=== PATIENT | female | born 1950 | race Caucasian/White ===

== ENCOUNTER 2017-08-07 17:27 | Inpatient (IN) | payer OTHER ==
[~2017-08-07] VITALS: Ht 170.2 cm; Wt 99.8 kg
--- NOTE | ~2017-08-07 | EKG ---
[place] [address] 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1950 Requested By: Caren Walter Order Number: [id number] MD: Tin Marrero Measurements Intervals [place] Rate: 82 P: 20 CA: 143 QRS: -24 QRSD: 101 T: 188 QT: 388 QTc: 453 Interpretive Statements Sinus rhythm Borderline left axis deviation Abnormal R-wave progression, late transition Borderline repolarization abnormality No previous ECG available for comparison Electronically Signed On 08-08-2017 14:37:19 SKIN LAP BONDER by Tin Marrero [email or web address] <ELECTRONICALLY SIGNED> By: Tin Marrero MD, [facility] 08/08/17 1437 D: [id number] Tin Marrero MD, FACC /EPI
[2017-08-07 17:28] VITALS: BP 122/51
[2017-08-07 17:48] LABS: ABSOLUTE NEUTROPHILS 11.9 thou/uL (1.4-8.2); BASOPHILS 0.7 % (0.0-2.0); EOSINOPHILS 0.3 % (0.0-3.0); HEMOGLOBIN 13.8 gm/dL (12.0-15.0); LYMPHOCYTES 8.9 % (24.0-44.0); MCHC 33.5 g/dL (28.0-37.0); MCV 98.5 fL (80.0-100.0); MONOCYTES 10.6 % (1.0-8.0); PLATELET COUNT 265 thou/uL (150-400); POLYS 79.5 % (36.0-66.0); RBC 4.17 mil/uL (4.20-5.00); RDW 15.6 % (10.5-14.5)
[2017-08-07] MEDS ORDERED: COLACE100 MG PO (17:51)
[2017-08-07] MEDS ORDERED: VITAMIN D2000 UNIT PO (17:51)
[2017-08-07] MEDS ORDERED: KEFLEX500 M1 PO (17:51)
[2017-08-07] MEDS ORDERED: ASA5UEC PO (17:52)
[2017-08-07] MEDS ORDERED: DEPAKOTE ER500 MG PO (17:52)
[2017-08-07] MEDS ORDERED: OMEPRAZOLE40 MG PO (17:52)
[2017-08-07] MEDS ORDERED: ACTONEL 35 MG35 M1 PO (17:53)
[2017-08-07] MEDS ORDERED: RISPERDAL 1 MG T1 MG PO (17:53)
[2017-08-07] MEDS ORDERED: ZANTAC 150MG T150 MG PO (17:53)
[2017-08-07] MEDS ORDERED: TESSALON PERLE100 MG PO (17:53)
[2017-08-07] MEDS ORDERED: LASIX 20 MG TAB20 MG PO (17:53)
[2017-08-07] MEDS ORDERED: KLOR-CON 1010 MEQ PO (17:54)
[2017-08-07] MEDS ORDERED: OXYCONTIN10 M1 PO (17:54)
[2017-08-07] MEDS ORDERED: NEURONTIN 300300 M1 PO (17:54)
[2017-08-07] MEDS ORDERED: ONDANSETRON HCL4 M2 PO (17:55)
[2017-08-07] MEDS ORDERED: CLONAZEPAM 0.50.5 M1 PO (17:55)
[2017-08-07] MEDS ORDERED: TRIAMCINOLONE A80 G2 TOP (17:55)
[2017-08-07 18:02] LABS: CALCIUM 8.7 mg/dL (8.5-10.1)
[2017-08-07 18:29] VITALS: BP 122/51
[2017-08-07 18:52] VITALS: BP 118/68
[2017-08-07 19:42] VITALS: BP 110/41
[2017-08-08 00:10] VITALS: BP 138/52
[2017-08-08] MEDS ORDERED: OXYCODONE HCL10 MG PO (00:45)
[2017-08-08 04:14] VITALS: BP 122/54
[2017-08-08 04:42] LABS: ABSOLUTE NEUTROPHILS 7.8 thou/uL (1.4-8.2); BASOPHILS 0.4 % (0.0-2.0); EOSINOPHILS 0.5 % (0.0-3.0); HEMATOCRIT 32.6 % (37.0-47.0); LYMPHOCYTES 24.6 % (24.0-44.0); MCH 33.2 pg (26.0-34.0); MCHC 33.7 g/dL (28.0-37.0); MCV 98.5 fL (80.0-100.0); MONOCYTES 11.4 % (1.0-8.0); POLYS 63.1 % (36.0-66.0); RBC 3.31 mil/uL (4.20-5.00); RDW 15.1 % (10.5-14.5); WBC 12.3 thou/uL (4.0-11.0)
[2017-08-08 04:46] LABS: PLATELET COUNT 163 thou/uL (150-400)
[2017-08-08 04:49] LABS: CREATININE 0.8 mg/dL (0.6-1.0)
[2017-08-08 04:58] LABS: POTASSIUM 2.7 mmol/L (3.5-5.1)
[2017-08-08 07:05] VITALS: BP 124/47
[2017-08-08 15:46] VITALS: BP 108/39
[2017-08-08 19:39] VITALS: BP 124/59
[2017-08-09 03:57] LABS: ABSOLUTE NEUTROPHILS 4.7 thou/uL (1.4-8.2); BASOPHILS 0.5 % (0.0-2.0); EOSINOPHILS 2.5 % (0.0-3.0); HEMATOCRIT 33.3 % (37.0-47.0); HEMOGLOBIN 11.2 gm/dL (12.0-15.0); LYMPHOCYTES 37.1 % (24.0-44.0); MCH 33.4 pg (26.0-34.0); MCHC 33.7 g/dL (28.0-37.0); MCV 99.2 fL (80.0-100.0); MONOCYTES 11.3 % (1.0-8.0); PLATELET COUNT 172 thou/uL (150-400); POLYS 48.6 % (36.0-66.0); RBC 3.36 mil/uL (4.20-5.00); RDW 15.5 % (10.5-14.5); WBC 9.6 thou/uL (4.0-11.0)
[2017-08-09 04:06] LABS: CALCIUM 8.3 mg/dL (8.5-10.1); CREATININE 0.9 mg/dL (0.6-1.0)
[2017-08-09 04:12] LABS: POTASSIUM 2.9 mmol/L (3.5-5.1)
[2017-08-09 04:34] VITALS: BP 100/45
[2017-08-09 08:11] VITALS: BP 111/52
[2017-08-09 11:30] LABS: MAGNESIUM 2.3 mg/dL (1.8-2.4); POTASSIUM 3.7 mmol/L (3.5-5.1)
[2017-08-09 16:20] VITALS: BP 96/45
[2017-08-09 20:00] VITALS: BP 96/44
[2017-08-09 23:40] VITALS: BP 113/35
[2017-08-10 04:15] VITALS: BP 109/44
[2017-08-10 06:31] LABS: ABSOLUTE NEUTROPHILS 3.6 thou/uL (1.4-8.2); BASOPHILS 0.5 % (0.0-2.0); EOSINOPHILS 3.8 % (0.0-3.0); HEMATOCRIT 33.5 % (37.0-47.0); HEMOGLOBIN 11.3 gm/dL (12.0-15.0); LYMPHOCYTES 37.4 % (24.0-44.0); MCH 33.5 pg (26.0-34.0); MCHC 33.7 g/dL (28.0-37.0); MCV 99.3 fL (80.0-100.0); PLATELET COUNT 197 thou/uL (150-400); POLYS 46.3 % (36.0-66.0); RBC 3.38 mil/uL (4.20-5.00); RDW 15.7 % (10.5-14.5); WBC 7.9 thou/uL (4.0-11.0)
[2017-08-10 07:57] VITALS: BP 101/42
[2017-08-10] MEDS ORDERED: ADULT LOW DOSE81 MG PO (09:05)
[2017-08-10] MEDS ORDERED: KEFLEX500 M1 PO (09:05)
== END 2017-08-10 13:11 | DRG 871 ==
LOC: ER 17:27 → 4E 18:14 → EROBS 18:14 → 4E 18:53
PROVIDERS: Emergency Medicine; Family Medicine
DX: A41.9 Sepsis, unspecified organism (principal); J18.9 Pneumonia, unspecified organism; G93.40 Encephalopathy, unspecified; L03.90 Cellulitis, unspecified; E87.6 Hypokalemia; D72.829 Elevated white blood cell count, unspecified; E83.42 Hypomagnesemia; Z96.643 Presence of artificial hip joint, bilateral; R12 Heartburn; F39 Unspecified mood [affective] disorder; Z88.8 Allergy status to other drugs, medicaments and biological substances; Z79.82 Long term (current) use of aspirin; Z90.710 Acquired absence of both cervix and uterus
CPT/HCPCS: 10183

== ENCOUNTER 2017-12-14 18:46 | Emergency (ER) | payer OTHER ==
[~2017-12-14] VITALS: Ht 172.7 cm; Wt 112.0 kg
--- NOTE | ~2017-12-14 | EKG ---
[place] [address] 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 : 1950 Requested By: Caren Walter Order Number: [id number] MD: Tin Marrero Measurements Intervals [place] Rate: 73 P: 43 ME: 144 QRS: 0 QRSD: 115 T: 26 QT: 409 QTc: 451 Interpretive Statements Sinus rhythm Atrial premature complex Nonspecific T abnormalities, anterior leads Compared to ECG 08/07/2017 17:56:05 Atrial premature complex(es) now present Electronically Signed On 12-15-2017 7:40:59 CDT by Tin Marrero [email or web address] <ELECTRONICALLY SIGNED> By: Tin Marrero MD, [facility] 12/15/17 0740 03 03 Tin Marrero MD, [facility] /EPI
[~2017-12-14 18:46] MED LIST: ACTONEL 35 MG35 M1 PO; ADULT LOW DOSE81 MG PO; ASA5UEC PO; CLONAZEPAM 0.50.5 M1 PO; COLACE100 MG PO; DEPAKOTE ER500 MG PO; KEFLEX500 M1 PO; KLOR-CON 1010 MEQ PO; LASIX 20 MG TAB20 MG PO; NEURONTIN 300300 M1 PO; OMEPRAZOLE40 MG PO; ONDANSETRON HCL4 M2 PO; OXYCODONE HCL10 MG PO; OXYCONTIN10 M1 PO; RISPERDAL 1 MG T1 MG PO; TESSALON PERLE100 MG PO; TRIAMCINOLONE A80 G2 TOP; VITAMIN D2000 UNIT PO; ZANTAC 150MG T150 MG PO
[2017-12-14 20:00] LABS: ABSOLUTE NEUTROPHILS 3.1 thou/uL (1.4-8.2); BASOPHILS 0.8 % (0.0-2.0); EOSINOPHILS 2.9 % (0.0-3.0); HEMATOCRIT 33.8 % (37.0-47.0); HEMOGLOBIN 11.3 gm/dL (12.0-15.0); LYMPHOCYTES 35.7 % (24.0-44.0); MCHC 33.5 g/dL (28.0-37.0); MCV 95.4 fL (80.0-100.0); MONOCYTES 11.9 % (1.0-8.0); PLATELET COUNT 221 thou/uL (150-400); POLYS 48.7 % (36.0-66.0); RBC 3.54 mil/uL (4.20-5.00); RDW 14.4 % (10.5-14.5); WBC 6.4 thou/uL (4.0-11.0)
[2017-12-14 20:12] LABS: ANION GAP 4 mmol/L (7-16); BUN 25 mg/dL (7-18); CALCIUM 9.2 mg/dL (8.5-10.1); CHLORIDE 105 mmol/L (98-107); CO2 33 mmol/L (21-32); CREATININE 1.4 mg/dL (0.6-1.0); GLUCOSE 119 mg/dL (74-106); POTASSIUM 3.6 mmol/L (3.5-5.1); SODIUM 142 mmol/L (136-145)
[2017-12-14 20:21] LABS: TROPONIN-I < 0.04 ng/mL (<0.06)
== END 2017-12-14 23:50 ==
LOC: ER 18:46
PROVIDERS: Emergency Medicine
DX: R60.0 Localized edema (principal); E66.9 Obesity, unspecified; Z96.643 Presence of artificial hip joint, bilateral; Z88.1 Allergy status to other antibiotic agents; Z88.8 Allergy status to other drugs, medicaments and biological substances; Z68.37 Body mass index [BMI] 37.0-37.9, adult

== ENCOUNTER 2017-12-21 19:52 | Inpatient (IN) | payer OTHER ==
[~2017-12-21] VITALS: Ht 170.2 cm; Wt 106.1 kg
--- NOTE | ~2017-12-21 | 2DMMODE ---
[facility] [address] [place] [address] 2 D/M-MODE ECHOCARDIOGRAM Name: SHANON BRADSHAW Room #: 170-10 ADM IN M.R.#: [id number] Admission: 12/21/17 Attend Phys: Karen Edmondson Discharge: Date of : 46 Date of Service: 12/22/17 1227 Report #: [id number] THIS REPORT FOR: //name// APPROVED REPORT Study performed: 12/22/2017 09:50:05 EXAM: Comprehensive 2D, Doppler, and color-flow Echocardiogram Patient Location: ER Room #: 10 Status: routine BSA: 2.19 HR: 67 bpm BP: 121/49 mmHg Other Information Study Quality: Fair Indications Dyspnea Edema 2D Dimensions RVDd: 32.19 mm LVEF(%): 56.44 (>50%) IVSd: 10.21 (7-11mm) LVOT Diam: 21.75 (18-24mm) LVDd: 59.34 mm PWd: 9.57 (7-11mm) Ascending Ao: 31.25 (22-36mm) LVDs: 41.51 (25-40mm) Aortic Root: 31.72 mm IVC: 23.00 mm Gabriel's LVEF: 56.44 % Volumes Left Atrial Volume (Systole) Single Plane 4CH: 59.31 mL Single Plane 2CH: 45.57 mL LA ESV Index: 26.00 mL/m2 Aortic Valve AoV Peak Vikash.: 1.90 m/s AO Peak Gr.: 14.42 mmHg LVOT Max P.81 mmHg LVOT Max V: 1.10 m/s JENNIFER Vmax: 2.14 cm2 AI Vmax: 3.92 m/s AI [place]: 2.20 m/s2 AI PHT: 517.51 ms [facility] [place] [address] 2 D/M-MODE ECHOCARDIOGRAM Name: SHANON BRADSHAW Room #: 170[facility] ADM IN M.R.#: [id number] Admission: 12/21/17 Attend Phys: Karen Edmondson Discharge: Date of : 46 Date of Service: 12/22/17 1227 Report #: [id number] Mitral Valve E/A Ratio: 1.1 MV Decel. Time: 175.48 ms MV E Max Vikash.: 1.08 m/s MV A Vikash.: 0.95 m/s MV PHT: 50.89 ms IVRT: 101.50 ms Pulmonary Valve PV Peak Vikash.: 0.93 m/s PV Peak Gr.: 3.50 mmHg Pulmonary Vein P Vein S: 0.43 m/s P Vein A: 0.25 m/s P Vein D: 0.23 m/s P Vein A Dur.: 92.3 msec P Vein S/D Ratio: 1.87 Tricuspid Valve TR Peak Vikash.: 2.74 m/s TR Peak Gr.: 29.93 mmHg PA Pressure: 40.00 mmHg Left Ventricle Left ventricle is at the upper limits of normal. Regional wall motion is not well visualized but grossly normal. There is normal left ventricular wall thickness. The left ventricular systolic function is normal. The left ventricular ejection fraction is within the normal range. LVEF is 55-60%. The left ventricular diastolic function is normal. Right Ventricle The right ventricle is normal size. The right ventricular systolic function is normal. Atria The left atrium size is normal. The right atrium size is normal. Aortic Valve Aortic valve is calcified. Mild aortic regurgitation. There is no aortic valvular stenosis. Mitral Valve Mild mitral annular calcification Mild mitral regurgitation. No evidence of mitral valve stenosis. Tricuspid Valve [facility] [address] [place] [address] 2 D/M-MODE ECHOCARDIOGRAM Name: SHANON BRADSHAW Room #: 170-10 [facility] IN .R.#: [id number] Admission: 12/21/17 Attend Phys: Karen Edmondson Discharge: Date of : 46 Date of Service: 12/22/17 1227 Report #: [id number] The tricuspid valve is normal in structure. There is trace tricuspid regurgitation. Estimated PAP 40 mmHg. There is mild pulmonary hypertension. Pulmonic Valve The pulmonary valve is normal in structure. There is no pulmonic valvular regurgitation. Great Vessels The aortic root is normal in size. IVC is dilated and collapses >50% with inspiration. Pericardium There is no pericardial effusion. <Conclusion> The left ventricular systolic function is normal. Regional wall motion is not well visualized but grossly normal. LVEF is 55-60%. Normal diastolic function Aortic valve is calcified. Mild aortic regurgitation, no stenosis. Mild mitral annular calcification. Mild mitral regurgitation. There is trace tricuspid regurgitation. Estimated pulmonary artery pressure of 40 mmHg. There is no pericardial effusion. <ELECTRONICALLY SIGNED> By: Tin Marrero MD, FACC 12/22/17 1227 122 26 Tin Marrero MD, FACC /INF
--- NOTE | ~2017-12-21 | EKG ---
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 : 1950 Requested By: Vickey Jameson Order Number: [id number] MD: Tin Marrero Measurements Intervals [place] Rate: 68 P: 63 WV: 155 QRS: 2 QRSD: 102 T: 34 QT: 456 QTc: 486 Interpretive Statements Sinus rhythm Nonspecific T abnormalities, anterior leads Compared to ECG 12/14/2017 19:04:59 Atrial premature complex(es) no longer present T-wave abnormality still present Electronically Signed On 12-22-2017 15:46:45 CDT by Tin Marrero [email or web address] <ELECTRONICALLY SIGNED> By: Tin Marrero MD, [facility] 12/22/17 1546 37 37 Tin Marrero MD, [facility] /EPI
[2017-12-21 19:56] VITALS: BP 120/43
[2017-12-21 21:43] LABS: ABSOLUTE NEUTROPHILS 3.5 thou/uL (1.4-8.2); BASOPHILS 0.9 % (0.0-2.0); EOSINOPHILS 3.9 % (0.0-3.0); HEMATOCRIT 33.4 % (37.0-47.0); HEMOGLOBIN 11.3 gm/dL (12.0-15.0); LYMPHOCYTES 37.7 % (24.0-44.0); MCH 32.2 pg (26.0-34.0); MCHC 33.9 g/dL (28.0-37.0); MONOCYTES 8.3 % (1.0-8.0); PLATELET COUNT 225 thou/uL (150-400); POLYS 49.2 % (36.0-66.0); RBC 3.52 mil/uL (4.20-5.00); RDW 14.5 % (10.5-14.5); WBC 7.2 thou/uL (4.0-11.0)
[2017-12-21 21:57] LABS: ANION GAP 8 mmol/L (7-16); BUN 35 mg/dL (7-18); CALCIUM 8.5 mg/dL (8.5-10.1); CHLORIDE 102 mmol/L (98-107); CO2 32 mmol/L (21-32); CREATININE 1.3 mg/dL (0.6-1.0); GLUCOSE 105 mg/dL (74-106); SODIUM 142 mmol/L (136-145)
[2017-12-21 22:06] LABS: TROPONIN-I < 0.04 ng/mL (<0.06)
[2017-12-21] MEDS ORDERED: CLONAZEPAM 0.50.5 M1 PO (23:17)
[2017-12-21] MEDS ORDERED: VESICARE10 M1 PO (23:21)
[2017-12-21] MEDS ORDERED: VIIBRYD20 MG PO (23:22)
[2017-12-21] MEDS ORDERED: VOLTAREN GEL 1100 G2 TOP (23:23)
[2017-12-21] MEDS ORDERED: VENTOLIN HFA 1818 GM INH (23:24)
[2017-12-22 05:01] LABS: ALBUMIN 2.9 g/dL (3.4-5.0); DIRECT BILIRUBIN 0.2 mg/dL (<0.1-0.3); MAGNESIUM 2.2 mg/dL (1.8-2.4); TOTAL BILIRUBIN 0.5 mg/dL (<0.1-1.0); TOTAL PROTEIN 6.2 g/dL (6.4-8.2)
[2017-12-22 06:23] LABS: CALCIUM 8.1 mg/dL (8.5-10.1); CREATININE 1.1 mg/dL (0.6-1.0); POTASSIUM 3.8 mmol/L (3.5-5.1)
[2017-12-22 14:22] VITALS: BP 121/49
[2017-12-22 14:55] VITALS: BP 121/49
[2017-12-22 15:34] VITALS: BP 138/51
[2017-12-22 19:58] VITALS: BP 106/43
[2017-12-23 04:24] VITALS: BP 129/58
[2017-12-23 08:13] VITALS: BP 98/55
[2017-12-23 15:44] VITALS: BP 98/48
[2017-12-23 19:11] VITALS: BP 121/54
[2017-12-24 04:41] VITALS: BP 122/54
[2017-12-24 05:41] LABS: ALBUMIN 2.6 g/dL (3.4-5.0); PHOSPHORUS 4.8 mg/dL (2.5-4.9); POTASSIUM 3.2 mmol/L (3.5-5.1)
[2017-12-24 08:00] VITALS: BP 108/48
[2017-12-24 15:54] VITALS: BP 95/45
[2017-12-24 18:04] VITALS: BP 103/43
[2017-12-25 08:50] VITALS: BP 120/40
[2017-12-25] MEDS ORDERED: CLEOCIN HCL150 MG PO (09:46)
== END 2017-12-25 14:00 | disposition designated cancer center or children's hospital (05) | DRG 602 ==
LOC: ER 19:52 → EROBS 22:25 → 4W 22:25 → SICU 12-24 17:48
PROVIDERS: Emergency Medicine; Hospitalist; Nurse Practitioner Acute Care
DX: L03.116 Cellulitis of left lower limb (principal); N17.0 Acute kidney failure with tubular necrosis; E87.6 Hypokalemia; Z96.643 Presence of artificial hip joint, bilateral; F41.9 Anxiety disorder, unspecified; B35.1 Tinea unguium; L03.115 Cellulitis of right lower limb; Z87.01 Personal history of pneumonia (recurrent); Z90.710 Acquired absence of both cervix and uterus; Z88.8 Allergy status to other drugs, medicaments and biological substances; Z79.82 Long term (current) use of aspirin; Z79.899 Other long term (current) drug therapy
CPT/HCPCS: 10045; 15002

== ENCOUNTER 2018-02-20 09:00 | Emergency (ER) | payer OTHER ==
[~2018-02-20] VITALS: Ht 170.2 cm; Wt 108.9 kg
[~2018-02-20 09:00] MED LIST changes: +CLEOCIN HCL150 MG PO; +VENTOLIN HFA 1818 GM INH; +VESICARE10 M1 PO; +VIIBRYD20 MG PO; +VOLTAREN GEL 1100 G2 TOP
== END 2018-02-20 11:20 ==
LOC: ER 09:00
DX: S51.811A Laceration without foreign body of right forearm, initial encounter (principal); M25.572 Pain in left ankle and joints of left foot; M79.7 Fibromyalgia; F41.9 Anxiety disorder, unspecified; Z88.6 Allergy status to analgesic agent; Z91.018 Allergy to other foods; Z91.048 Other nonmedicinal substance allergy status; Z88.8 Allergy status to other drugs, medicaments and biological substances; Z90.710 Acquired absence of both cervix and uterus; Z96.643 Presence of artificial hip joint, bilateral; W18.39XA Other fall on same level, initial encounter; Y92.89 Other specified places as the place of occurrence of the external cause; Y93.89 Activity, other specified; Y99.8 Other external cause status

== ENCOUNTER 2018-05-16 04:29 | Emergency (ER) | payer OTHER ==
[~2018-05-16] VITALS: Ht 170.2 cm; Wt 113.4 kg
[2018-05-16] MEDS ORDERED: ASPIR 8181 MG PO (04:38)
[2018-05-16] MEDS ORDERED: ZANTAC 150MG T150 MG PO (04:39)
[2018-05-16 05:12] LABS: HEMATOCRIT 39.3 % (37.0-47.0); HEMOGLOBIN 13.3 gm/dL (12.0-15.0); MCH 32.5 pg (26.0-34.0); MCV 95.6 fL (80.0-100.0); PLATELET COUNT 168 thou/uL (150-400); RBC 4.11 mil/uL (4.20-5.00); RDW 14.5 % (10.5-14.5); WBC 9.2 thou/uL (4.0-11.0)
[2018-05-16 05:19] LABS: CREATININE 1.2 mg/dL (0.6-1.0); POTASSIUM 3.8 mmol/L (3.5-5.1)
[2018-05-16 05:26] LABS: URINE BILIRUBIN NEGATIVE (Negative); URINE BLOOD TRACE (Negative); URINE CLARITY CLEAR; URINE COLOR YELLOW; URINE GLUCOSE-RANDOM* NEGATIVE (Negative); URINE KETONES NEGATIVE (Negative); URINE LEUKOCYTES-REFLEX NEGATIVE (Negative); URINE NITRITE-REFLEX NEGATIVE (Negative); URINE PROTEIN (DIPSTICK) NEGATIVE (Negative)
[2018-05-16 05:35] LABS: ABSOLUTE NEUTROPHILS 5.2 thou/uL (1.4-8.2); PLATELET ESTIMATE NORMAL
[2018-05-16 05:36] LABS: AMP/METHAMP Negative (Negative); BARBITURATES Negative (Negative); BENZODIAZEPINES Negative (Negative); COCAINE Negative (Negative); METHADONE Negative (Negative); OPIATES POSITIVE (Negative); PCP Negative (Negative)
[2018-05-16 08:21] VITALS: BP 138/48
== END 2018-05-16 08:22 | disposition home or self-care (01) ==
LOC: ER 04:29
PROVIDERS: Emergency Medicine
DX: M54.5 Low back pain (principal); G89.29 Other chronic pain; M79.7 Fibromyalgia; F41.9 Anxiety disorder, unspecified; Z88.8 Allergy status to other drugs, medicaments and biological substances; Z88.6 Allergy status to analgesic agent; Z91.048 Other nonmedicinal substance allergy status; Z90.710 Acquired absence of both cervix and uterus; Z96.643 Presence of artificial hip joint, bilateral

== ENCOUNTER 2019-05-20 09:55 | Emergency (ER) | payer OTHER ==
[~2019-05-20] VITALS: Ht 170.2 cm; Wt 113.4 kg
[~2019-05-20 09:55] MED LIST changes: +ASPIR 8181 MG PO
[2019-05-20] MEDS ORDERED: NORCO 5-325 TA1 EAC1 PO (12:00)
[2019-05-20] MEDS ORDERED: VANACOF DM LIQ240 ML PO (12:00)
[2019-05-20] MEDS ORDERED: PREDNISONE 20 M20 MG PO (12:00)
[2019-05-20 12:17] VITALS: BP 165/74
== END 2019-05-20 12:18 | disposition home or self-care (01) ==
LOC: ER 09:55
DX: J06.9 Acute upper respiratory infection, unspecified (principal); J40 Bronchitis, not specified as acute or chronic; J44.9 Chronic obstructive pulmonary disease, unspecified; M79.7 Fibromyalgia; F41.9 Anxiety disorder, unspecified; Z79.01 Long term (current) use of anticoagulants; Z76.0 Encounter for issue of repeat prescription; Z90.710 Acquired absence of both cervix and uterus; Z88.1 Allergy status to other antibiotic agents

== ENCOUNTER 2019-06-01 17:25 | Emergency (ER) | payer OTHER ==
[~2019-06-01] VITALS: Ht 170.2 cm; Wt 116.6 kg
[~2019-06-01 17:25] MED LIST changes: +NORCO 5-325 TA1 EAC1 PO; +PREDNISONE 20 M20 MG PO; +VANACOF DM LIQ240 ML PO
[2019-06-01 18:55] LABS: ABSOLUTE NEUTROPHILS 4.6 thou/uL (1.4-8.2); BASOPHILS 0.6 % (0.0-2.0); EOSINOPHILS 4.9 % (0.0-3.0); HEMOGLOBIN 11.6 gm/dL (12.0-15.0); LYMPHOCYTES 31.2 % (24.0-44.0); MCH 30.9 pg (26.0-34.0); MCHC 33.2 g/dL (28.0-37.0); MCV 93.3 fL (80.0-100.0); MONOCYTES 11.3 % (1.0-8.0); PLATELET COUNT 298 thou/uL (150-400); RBC 3.75 mil/uL (4.20-5.00); RDW 15.3 % (10.5-14.5); WBC 8.8 thou/uL (4.0-11.0)
[2019-06-01 19:02] LABS: CALCIUM 9.1 mg/dL (8.5-10.1)
[2019-06-01 19:08] LABS: ALBUMIN 2.9 g/dL (3.4-5.0); INR 1.1; PROTIME 11.6 Seconds (9.3-11.4); TOTAL BILIRUBIN 0.3 mg/dL (<0.1-1.0); TOTAL PROTEIN 6.1 g/dL (6.4-8.2)
[2019-06-01] MEDS ORDERED: NORCO 7.5-3251 EACH PO (21:14)
[2019-06-01] MEDS ORDERED: LIDOCAINE PAIN1 EACH TRANSDERM (21:14)
[2019-06-01 22:22] VITALS: BP 135/53
== END 2019-06-01 22:23 ==
LOC: ER 17:25
PROVIDERS: Physician Assistant
DX: S70.02XA Contusion of left hip, initial encounter (principal); M79.7 Fibromyalgia; Z88.1 Allergy status to other antibiotic agents; Z91.018 Allergy to other foods; Z88.8 Allergy status to other drugs, medicaments and biological substances; Z79.82 Long term (current) use of aspirin; Z79.899 Other long term (current) drug therapy; Z90.710 Acquired absence of both cervix and uterus; Z96.643 Presence of artificial hip joint, bilateral; W18.30XA Fall on same level, unspecified, initial encounter; Y93.89 Activity, other specified; Y92.89 Other specified places as the place of occurrence of the external cause; Y99.9 Unspecified external cause status

== ENCOUNTER 2019-07-05 09:09 | Inpatient (IN) | payer OTHER ==
[~2019-07-05] VITALS: Ht 152.4 cm; Wt 113.2 kg
[~2019-07-05 09:09] MED LIST changes: +LIDOCAINE PAIN1 EACH TRANSDERM; +NORCO 7.5-3251 EACH PO
[2019-07-05 09:10] VITALS: BP 124/44
[2019-07-05] MEDS ORDERED: XARELTO10 MG PO (09:23)
[2019-07-05 09:58] LABS: HEMATOCRIT 35.1 % (37.0-47.0); HEMOGLOBIN 11.4 gm/dL (12.0-15.0); MCH 30.7 pg (26.0-34.0); MCHC 32.4 g/dL (28.0-37.0); MCV 94.7 fL (80.0-100.0); RBC 3.7 mil/uL (4.20-5.00); RDW 15.3 % (10.5-14.5); WBC 6.9 thou/uL (4.0-11.0)
[2019-07-05 10:06] LABS: APTT 28.6 Seconds (24.5-32.8); PROTIME 10.4 Seconds (9.3-11.4)
[2019-07-05 10:09] LABS: CALCIUM 8.7 mg/dL (8.5-10.1); CREATININE 0.8 mg/dL (0.6-1.0); POTASSIUM 3.7 mmol/L (3.5-5.1)
[2019-07-05 10:14] LABS: MAGNESIUM 1.9 mg/dL (1.8-2.4); TOTAL BILIRUBIN 0.4 mg/dL (<0.1-1.0); TOTAL PROTEIN 6.9 g/dL (6.4-8.2)
[2019-07-05] MEDS ORDERED: TRAMADOL 50 MG50 MG PO (10:25)
[2019-07-05 12:24] VITALS: BP 130/55
[2019-07-05 12:55] VITALS: BP 121/61
[2019-07-05 13:30] VITALS: BP 131/52
--- NOTE | 2019-07-05 18:27 | NUR ---
Patient admitted at 1310 for pain in right shoulder R/T fall. Patient has 3-4+ pitting edema to bilateral lower extremities. Patient has been refusing to take her Lasix at the Assisted Living Facility which in turn, has caused this fall. She has weakness in both lower extremities and needs assistance with ambulation, transfers and other ADL's. Patient was independent with a walker prior to this fall. She has hurt her right shoulder which is in a brace, therefore, she is unable to use her walker. Vital signs are stable, lung sounds are diminished and clear. Abdomen is soft and non-tender, BS x's 4, skin is clean, warm, dry and intact. Patient has chronic pain. She is upset that she only has an order for 1 Hydrocodone q 4 hours and states "I am not going to take the Lasix!" Patient informed this nurse that she "hid" some of the Lasix pills at the Assisted Living Facility where she lives and "didn't take them." Will report to on-coming nurse.
[2019-07-05 19:20] VITALS: BP 113/39
[2019-07-06 08:00] VITALS: BP 140/57
--- NOTE | 2019-07-06 10:47 | EKG ---
[address] [place] [address] ELECTROCARDIOGRAM REPORT Name: SHANON BRADSHAW Room #: 453-P ADM IN M.R.#: [id number] Admission: 07/05/19 Attend Phys: Karen Ly Discharge: Date of : 46 Report #: [id number] THIS REPORT FOR: //name// 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
[2019-07-06 15:00] VITALS: BP 136/46
--- NOTE | 2019-07-06 19:28 | NUR ---
Assumed pt care this am, VS stable complained of pain managed with medications. Pt is able to used the bedside commode using a gaitbelt and walker. Right arm on a sling sevral areas of bruising have been noted. Nystatin powder placed on the pannus, groin area, under arm and underl left breawst done. POC followed, endorsed to the night nurse.
[2019-07-06 19:32] VITALS: BP 127/40; BP 87/20
--- NOTE | 2019-07-07 05:02 | NUR ---
Pt. rested quietly at intervals during the night when checked on during frequent rounds. She was medicated for c/o pain to her right shoulder (see emar) with some relief noted. Right shoulder is in a sling. Bed alarm is on.
[2019-07-07 07:44] VITALS: BP 131/66
--- NOTE | 2019-07-07 11:54 | NUR ---
DISCHARGE PLANNING. POST ACUTE RECOMMENDED AT DISCHARGE. PATIENT REFERRAL FAXED TO [facility] PER REQUEST. PATIENT RESIDES AT [facility]. [facility] DOES NOT CONTRACT WITH PATIENTS PROVIDER FOR POST ACUTE CARE. CALL PLACED TO JUNE JASON LIAISON TO NOTIFY. VOICE MAIL LEFT FOR HER. AWAITING RESPONSE. PATIENT IS READY FOR DISCHARGE TODAY. FOLLOWING.
--- NOTE | 2019-07-07 12:44 | NUR ---
PT ADMITTED RELATED TO R SHOULDER PAIN S/P FALL. CM REVIEWED CHART AND SPOKE WITH CARE TEAM. CM MET WITH PT AT BEDSIDE THIS DAY. PT IS A&O X4. CM ROLE INTRODUCED. PT INDICATED SHE LIVES AT [facility] IN ASSISTED LIVING. PT INDICATED SHE USES A 4WW WITH A SEAT TO ASSIST WITH MOBILITY BUT THAT SHE CAN'T/DOESN'T USE IT INSIDE HER SMALL APARTMENT. PT INDICATED SHE HOPES TO GO FOR SHORT TERM SKILLED REHAB STAY [place]ON [place]. SHE HAD HOPED TO GO TO [facility] SKILLED BUT THEY DON'T TAKE HER INSURANCE. REFERRAL WAS SENT TO [facility]. CM TO FOLLOW INDICATED WITH DC PLANNING.
[2019-07-07 15:11] VITALS: BP 108/41
--- NOTE | 2019-07-07 16:16 | NUR ---
FAXED REFERRAL FOR SKILLED STAY TO [place] [facility] SPOKE WITH RIAN IN ADM SHE RECEIVED REFERRAL AND WILL REVIEW. DP TO FOLLOW.
[2019-07-07 19:11] VITALS: BP 141/58
--- NOTE | 2019-07-07 19:45 | NUR ---
Assumed pt care this am VS stable, pain managed with medications. FAll precautions in place. Calls appropriately, pain is managed with medication. VEry concerned about her not havung a place to live, assured her of the plan oif going to skilled. No IV inplace, Dr. Ly aware and informed suberte yesterday. POC followed.
--- NOTE | 2019-07-08 04:05 | NUR ---
ASSUMED CARE OF PT AT 1900HRS. PT IS AOX4 AND LETS NEEDS BE KNOWN. FALL PRECAUTION IN PLACE. O2 VIA NC CONTINUED. PT COMPLAINED OF PAIN AND WAS TREATED WITH PRN PAIN MEDS. PT WAS ABLE TO GET COMFORTABLE AND SLEEP PART OF THE SHIFT. VSS AND NO S/S OF ACUTE DISTRESS. WILL CONTINUE TO MONITOR.
[2019-07-08 08:00] VITALS: BP 138/56
--- NOTE | 2019-07-08 10:11 | NUR ---
Assumed pt care this am, external kaur in place and suctioning yellow urine. Pain managed with medication, stayed on her recliner this am. Refused to eat breakfast stating she is not a breakfafst person. POC followed, medications and diet are well tolerated. Pt is to go to [facility] awaiting poultry picker at 1 pm, pt informed.
--- NOTE | 2019-07-08 16:22 | NUR ---
AUTH WAS RECIEVED FOR PT TO DC TO [facility]. WHEELCHAIR VAN TRANSPORT ARRANGED FOR 1300. CHART COPY MADE. ORDERS FAXED. PT'S SISTER NOTIFIED. NURSE CALLED REPORT. NO OTHER CM INTERVENTION INDICATED.
== END 2019-07-08 12:48 | DRG 605 ==
LOC: ER 09:09 → EROBS 11:22 → 4W 11:22
PROVIDERS: Emergency Medicine; ADMIT Hospitalist
DX: S40.011A Contusion of right shoulder, initial encounter (principal); G82.20 Paraplegia, unspecified; Z68.42 Body mass index [BMI] 45.0-49.9, adult; R53.1 Weakness; W18.39XA Other fall on same level, initial encounter; Z96.643 Presence of artificial hip joint, bilateral; M79.7 Fibromyalgia; F41.9 Anxiety disorder, unspecified; J44.9 Chronic obstructive pulmonary disease, unspecified; E66.9 Obesity, unspecified; R29.6 Repeated falls; F11.10 Opioid abuse, uncomplicated; I10 Essential (primary) hypertension; F32.9 Major depressive disorder, single episode, unspecified; G47.00 Insomnia, unspecified; R63.4 Abnormal weight loss; Z91.048 Other nonmedicinal substance allergy status; Y93.89 Activity, other specified; Y99.8 Other external cause status; Z90.710 Acquired absence of both cervix and uterus; Z79.82 Long term (current) use of aspirin; Z79.891 Long term (current) use of opiate analgesic; Z79.899 Other long term (current) drug therapy; Z88.8 Allergy status to other drugs, medicaments and biological substances; Z86.711 Personal history of pulmonary embolism; Z86.718 Personal history of other venous thrombosis and embolism; Z79.01 Long term (current) use of anticoagulants; Y92.098 Other place in other non-institutional residence as the place of occurrence of the external cause
CPT/HCPCS: 10047

== ENCOUNTER → 2019-12-05 | Outpatient (CLI) | payer OTHER ==
[~2019-12-05] MED LIST changes: +TRAMADOL 50 MG50 MG PO; +XARELTO10 MG PO
== END ==
LOC: CAT 09:55
PROVIDERS: ATTEND Orthopaedic Surgery Sports Medicine
DX: S42.91XA Fracture of right shoulder girdle, part unspecified, initial encounter for closed fracture (principal); M85.811 Other specified disorders of bone density and structure, right shoulder; J84.10 Pulmonary fibrosis, unspecified; X58.XXXA Exposure to other specified factors, initial encounter; Y93.89 Activity, other specified; Y92.89 Other specified places as the place of occurrence of the external cause; Y99.8 Other external cause status

== ENCOUNTER 2020-05-07 23:32 | Emergency (ER) | payer OTHER ==
[~2020-05-07] VITALS: Ht 170.2 cm; Wt 124.7 kg
--- NOTE | ~2020-05-07 | EMS ---
[address] [address] EMS Patient Care Report Name: SHANON BRADSHAW Room #: REG ASHLEIGH Nguyen#: [id number] Admission: 05/07/20 Attend Phys: Discharge: Date of : 46 Report #: [id number] THIS REPORT FOR: //name// Report Transmitted: 05/08/2020 01:05 EMS Care Summary [place], [place]/[facility] Incident [id number] @ 05/07/2020 22:59 Incident Location [address] Patient SHANON BRADSHAW Female, 69 Years 1950 [facility] [address] [facility] [address] [address] [place] [address] Patient History Novel Coronavirus (COVID-19), Chief Complaint CHRONIC NECK PAIN Disposition Transported No Lights/[place] Dispatch Reason Sick Person Transported To [facility] Narrative RESPONDED TO SICK AT SNF. UPON ARRIVAL [facility] STAFF REPORT THIS PT IS COVID POSITIVE BUT THEY DO NOT HAVE ANY PAPERWORK DUE TO PRINTERS BEING DOWN. EMS TAKE ALL COVID PRECAUTIONS PRIOR TO PT CONTACT. PT FOUND IN BED ALERT AND ORIENTED. PT REPORTS SHE NO LONGER WANTS TO BE AT THIS SNF BECAUSE SHE FEELS SHE IS NOT GETTING ENOUGH ATTENTION FROM STAFF FOR HER NEEDS. PT THEN COMPLAINS OF NECK PAIN THAT IS NOT NEW BUT SHE WANTS TO BE SEEN IN THE [facility] FOR IT. PT IS PLACED IN MULTIPLE SURGICAL MASKS THEN TEAM LIFTED TO [place] [phone] EMS Patient Care Report Name: SHANON BRADSHAW [id number] Admission: 05/07/20 Attend Phys: Discharge: Date of : 46 Report #: [id number] COT. VITALS OBTAINED. PT TRANSPORTED TO [facility]. PT TEAM LIFTED TO BED AND HANDRAILS UP. REPORT GIVEN TO NURSE. Initial Vitals @23:28P: 100,R: 20,BP: 142/68,SpO2: 93, @23:24P: 102,R: 20,BP: 142/69,Pain: 4/10,GCS: 15,CO: 9,SpO2: 89,Revised Trauma: 12, Assessments @23:18MENTAL:Person Oriented,Time Oriented,Event Oriented,Place Oriented,SKIN:Hot,HEENT:Head/Face: No Abnormalities,Eyes: No Abnormalities,Neck/Airway: No Abnormalities,LUNG SOUNDS:General: No Abnormalities,Left Upper: No Abnormalities,Right Upper: No Abnormalities,Left Lower: No Abnormalities,Right Lower: No Abnormalities,ABDOMEN:General: No Abnormalities,Left Upper: No Abnormalities,Right Upper: No Abnormalities,Left Lower: No Abnormalities,Right Lower: No Abnormalities,PELVIS//GI:Incontinence,EXTREMITIES:Left Arm: Weakness,Right Arm: Weakness,Left Leg: Weakness,Right Leg: Weakness,PULSE:NEURO:No Abnormalities,@23:24MENTAL:Place Oriented,Event Oriented,Time Oriented,Person Oriented,SKIN:Hot,HEENT:Head/Face: No Abnormalities,Eyes: No Abnormalities,Neck/Airway: No Abnormalities,LUNG SOUNDS:General: No Abnormalities,Left Upper: No Abnormalities,Right Upper: No Abnormalities,Left Lower: No Abnormalities,Right Lower: No Abnormalities,ABDOMEN:General: No Abnormalities,Left Upper: No Abnormalities,Right Upper: No Abnormalities,Left Lower: No Abnormalities,Right Lower: No Abnormalities,PELVIS//GI:Incontinence,EXTREMITIES:Right Leg: Weakness,Right Arm: Weakness,Left Leg: Weakness,Left Arm: Weakness,PULSE:NEURO:No Abnormalities, Impression COVID-19 - Confirmed by testing Procedures @23:18ALS AssessmentResponse: UnchangedSucceeded@23:20Oxygen FlowRate: 2 Device: Nasal Cannula (NC) Response: ImprovedSucceeded Timeline 22:57,Call Received 22:57,Dispatch Notified 22:59,Dispatched 23:00,En Route 23:07,On Scene 23:18,At Patient 23:18,ALS Assessment,Response: UnchangedSucceeded, 23:20,Oxygen FlowRate: 2 Device: Nasal Cannula (NC) Response: ImprovedSucceeded, 23:24,BP: 142/69 M,PULSE: 102,RR: 20 R,SPO2: 89 Ox,ETCO2: ,BG: ,PAIN: 4,GCS: [facility] [address] [place] [address] EMS Patient Care Report Name: SHANON BRADSHAW Room #: REG Patrick#: [id number] Admission: 05/07/20 Attend Phys: Discharge: Date of : 46 Report #: [id number] 15, 23:26,Depart Scene 23:28,At Destination 23:28,BP: 142/68 M,PULSE: 100,RR: 20 R,SPO2: 93 Ox,ETCO2: ,BG: ,PAIN: ,GCS: , 23:42,Call Closed Disclaimer v1.1 Copyright 2020 [employer]. This EMS Care Summary contains data elements from the applicable legal record (which may be displayed differently). It is designed to provide pertinent information for the following purposes: continuity of care, clinical quality, and state data reporting. The complete legal record is available to ED staff and administrators of the receiving hospital in [email or web address]'s Patient Tracker. All data is provided "as is."
[~2020-05-07 23:32] MED LIST changes: +DEPAKOTE ER500 M1 PO; -DEPAKOTE ER500 MG PO
[2020-05-07] MEDS ORDERED: OXYCODONE PO (23:41)
[2020-05-07] MEDS ORDERED: ZINC SULFATE220 MG PO (23:43)
[2020-05-07] MEDS ORDERED: OXYBUTYNIN 5 MG5 M2 PO (23:43)
[2020-05-07] MEDS ORDERED: MELATONIN3 M1 PO (23:43)
[2020-05-07] MEDS ORDERED: GABAPENTIN100 MG PO (23:44)
[2020-05-07] MEDS ORDERED: OMEPRAZOLE40 MG PO (23:44)
[2020-05-07] MEDS ORDERED: CYMBALTA30 MG PO (23:44)
[2020-05-07] MEDS ORDERED: MYSOLINE50 MG PO (23:45)
[2020-05-07] MEDS ORDERED: SUPER THERAVIT1 EACH PO (23:46)
[2020-05-07] MEDS ORDERED: IPRAT-ALBUT 0.5-3 ML INH (23:46)
[2020-05-07] MEDS ORDERED: NON-ASPIRIN325 MG PO (23:47)
[2020-05-07] MEDS ORDERED: EFFER-K 10 MEQ10 ME1 PO (23:47)
[2020-05-07] MEDS ORDERED: VENTOLIN HFA 1818 GM INH (23:47)
[2020-05-08 01:59] LABS: HEMATOCRIT 39.5 % (37.0-47.0); MCH 31.1 pg (26.0-34.0); MCHC 32.8 g/dL (28.0-37.0); MCV 94.9 fL (80.0-100.0); PLATELET COUNT 170 thou/uL (150-400); RBC 4.16 mil/uL (4.20-5.00); RDW 14.6 % (10.5-14.5); WBC 5.2 thou/uL (4.0-11.0)
[2020-05-08 02:01] LABS: CALCIUM 8.3 mg/dL (8.5-10.1); CREATININE 0.9 mg/dL (0.6-1.0); POTASSIUM 3.7 mmol/L (3.5-5.1)
[2020-05-08 03:01] VITALS: BP 128/62
[2020-05-08 03:30] LABS: ABSOLUTE NEUTROPHILS 2.8 thou/uL (1.4-8.2); PLATELET ESTIMATE NORMAL
== END 2020-05-08 04:14 ==
LOC: ER 23:32
PROVIDERS: Emergency Medicine
DX: U07.1 COVID-19 (principal); M54.2 Cervicalgia; R21 Rash and other nonspecific skin eruption; M79.7 Fibromyalgia; J44.9 Chronic obstructive pulmonary disease, unspecified; F41.9 Anxiety disorder, unspecified; Z98.890 Other specified postprocedural states; Z96.643 Presence of artificial hip joint, bilateral; Z79.899 Other long term (current) drug therapy; Z79.82 Long term (current) use of aspirin; Z88.8 Allergy status to other drugs, medicaments and biological substances; Z91.048 Other nonmedicinal substance allergy status; Z91.018 Allergy to other foods

== ENCOUNTER → 2020-10-10 | Outpatient (CLI) | payer OTHER ==
[~2020-10-10] MED LIST changes: +BUSPIRONE HCL5 MG PO; +CYMBALTA20 MG PO; +CYMBALTA30 MG PO; +EFFER-K 10 MEQ10 ME1 PO; +GABAPENTIN100 MG PO; +IPRAT-ALBUT 0.5-3 ML INH; +MELATONIN3 M1 PO; +MYSOLINE50 MG PO; +NON-ASPIRIN325 MG PO; +OXYBUTYNIN 5 MG5 M2 PO; +OXYCODONE PO; +SUPER THERAVIT1 EACH PO; +ZINC SULFATE220 MG PO
--- NOTE | 2020-10-18 09:27 | O ---
[facility] [place] [address] OPERATIVE REPORT Name: SHANON BRADSHAW Room #: REG PRAVEEN Nguyen#: [id number] Admission: 10/10/20 Attend Phys: Murphy Encinas MD Discharge: Date of : 46 Report #: [id number] THIS REPORT FOR: cc: Mariya Schrader MD, Ramilo MD Joseph,Murphy Guerrero MD ~ DATE OF SERVICE: 10/10/2020 PREOPERATIVE DIAGNOSIS: Morbid obesity, history of lap band placement. POSTOPERATIVE DIAGNOSIS: Morbid obesity, history of lap band placement. PROCEDURE DONE: Lap band adjustment under fluoroscopy. OPERATING SURGEON: Murphy Encinas MD INDICATIONS FOR THE PROCEDURE: The patient is a 69-year-old female who has features of morbid obesity and has been getting increasing weight. The patient has a lap band in place and wished to have a lap band adjustment. DESCRIPTION OF PROCEDURE: After explaining to the patient in detail, the procedure was done in the fluoroscopy room. The port was accessed under sterile precautions and under fluoroscopic guidance and using oral Gastrografin, lap band adjustment was made. The lap band appeared to be in place and the contrast was kind of passing through. I injected about 0.5 mL of saline into the port. The patient was able to tolerate liquids at the end of the procedure. ESTIMATED BLOOD LOSS: Minimal. CONDITION OF THE PATIENT: Stable. FLUIDS GIVEN: None. COMPLICATIONS: None. <ELECTRONICALLY SIGNED> By: Murphy Encinas MD 10/18/20926 1 6 MD anna Mcneal
== END | disposition home or self-care (01) ==
LOC: RAD 10:06
PROVIDERS: ATTEND Surgery
DX: E66.01 Morbid (severe) obesity due to excess calories (principal); Z98.84 Bariatric surgery status; J44.9 Chronic obstructive pulmonary disease, unspecified; M79.7 Fibromyalgia; F41.9 Anxiety disorder, unspecified; Z90.710 Acquired absence of both cervix and uterus; Z98.890 Other specified postprocedural states; Z79.899 Other long term (current) drug therapy; Z96.643 Presence of artificial hip joint, bilateral; Z88.8 Allergy status to other drugs, medicaments and biological substances

== ENCOUNTER 2020-10-20 16:35 | Emergency (ER) | payer OTHER ==
[~2020-10-20] VITALS: Ht 170.2 cm; Wt 113.4 kg
[~2020-10-20 16:35] MED LIST changes: -BUSPIRONE HCL5 MG PO; -CYMBALTA20 MG PO
[2020-10-20] MEDS ORDERED: BUSPIRONE HCL5 MG PO (17:24)
[2020-10-20] MEDS ORDERED: CYMBALTA20 MG PO (17:25)
[2020-10-20 21:12] VITALS: BP 130/39
== END 2020-10-20 21:17 ==
LOC: ER 16:35
DX: S93.491A Sprain of other ligament of right ankle, initial encounter (principal); M79.671 Pain in right foot; J44.9 Chronic obstructive pulmonary disease, unspecified; Z88.8 Allergy status to other drugs, medicaments and biological substances; Z88.5 Allergy status to narcotic agent; Z79.899 Other long term (current) drug therapy; Z90.710 Acquired absence of both cervix and uterus; Z96.643 Presence of artificial hip joint, bilateral; Z98.890 Other specified postprocedural states; W22.8XXA Striking against or struck by other objects, initial encounter; Y93.55 Activity, bike riding; Y92.89 Other specified places as the place of occurrence of the external cause; Y99.9 Unspecified external cause status